=== PATIENT | female | born 1970 | race Caucasian/White ===

== ENCOUNTER → 2021-04-15 16:00 | Outpatient (CLI) | payer OTHER, SELFPAY ==
[2021-04-15 15:22] VITALS: BMI 43.2
[2021-04-15 17:27] LABS: Absolute Lymphocyte Count 1.83 X10^3/uL (0.83-4.51); Absolute Neutrophil Count 6.4 X10^3/uL (2.0-7.7); Basophil# 0.03 X10^3/uL; Basophil% 0.3 % (0-1); Eosinophil# 0.19 X10^3/uL; Eosinophils% 2.1 % (0-5); Hematocrit 43.3 % (37-47); Hemoglobin 13.9 g/dL (12.0-15.0); Lymphocyte # 1.83 X10^3/ul (0.83-4.51); Lymphocyte % 20.3 % (19-41); Mean Corp Hgb Conc 32.1 g/dL (32-36); Mean Corpuscular Hgb 28.4 pg (27.0-32.0); Mean Corpuscular Volume 88.5 fL (81-99); Mean Platelet Vol. 9.1 fl (6.2-12.0); Monocyte# 0.53 X10^3/uL; Monocyte% 5.9 % (0-10); NRBC Flagged by Analyzer 0 % (0-5); Neutrophil # 6.37 X10^3/uL (2.7-7.7); Neutrophil % 70.8 % (47-70); Platelet Count 215 K/mm3 (150-450); RBC Distribution Width CV 13.4 % (11.6-14.6); RBC Distribution Width SD 43.5 fl (35.1-43.9); Red Blood Count 4.89 M/mm3 (4.2-5.4)
[2021-04-15 17:37] LABS: ALB/GLOB Ratio 0.9 RATIO (0.9-2.4); AST(SGOT) 23 U/L (15-37); Alanine Aminotransfer ALT/SGPT 39 U/L (13-56); Albumin, Serum 3.4 g/dL (3.2-5.0); Alkaline Phosphatase 96 U/L (45-117); Anion Gap 6 (5-15); BUN 21 mg/dL (7-18); BUN/Creat Ratio 29.3 RATIO (10-20); Chloride 105 mmol/L (98-107); Cholesterol 169 mg/dL (200); Creatinine, Serum 0.72 mg/dL (0.55-1.02); EST Glomerular Filtration Rate 92 mL/min (>60); Est Glom Filt Rate - Afr Amer 111 mL/min (>60); Globulin 3.9 g/dL (2.2-4.2); Glucose 208 mg/dL (74-106); High Density Lipoprotein 32 mg/dL; Potassium 3.6 mmol/L (3.5-5.1); Protein, Total 7.3 g/dL (6.4-8.2); Sodium Level 141 mmol/L (136-145); Thyroid Stim Hormone (TSH) 2.27 uIU/mL (0.358-3.74); Triglycerides 115 mg/dL; Very Low Density Lipoprotein 23 mg/dL (5-40)
[2021-04-16 10:18] LABS: Hemoglobin A1c 8.3 % (3.8-5.6)
== END ==
PROVIDERS: PCP Family Medicine; Referring Provider Nurse Practitioner Family; Visit Provider Nurse Practitioner Family
DX: I10 Essential (primary) hypertension (principal); R63.5 Abnormal weight gain
CPT/HCPCS: 36415; 80053; 80061; 83036; 84443; 85025

== ENCOUNTER 2021-05-06 14:30 | Outpatient (RCR) | payer OTHER, SELFPAY ==
[2021-04-15 15:22] VITALS: BMI 43.2
== END 2021-05-20 23:59 ==
LOC: DC 14:30
PROVIDERS: PCP Family Medicine; Visit Provider Nurse Practitioner Family
DX: E11.9 Type 2 diabetes mellitus without complications (principal); E66.01 Morbid (severe) obesity due to excess calories
CPT/HCPCS: G0108

== ENCOUNTER 2021-06-18 15:00 | Outpatient (RCR) | payer OTHER, SELFPAY ==
[2021-04-15 15:22] VITALS: BMI 43.2
== END 2021-06-20 23:59 ==
LOC: DC 15:00
PROVIDERS: PCP Family Medicine; Visit Provider Nurse Practitioner Family
DX: E11.9 Type 2 diabetes mellitus without complications (principal); R63.5 Abnormal weight gain
CPT/HCPCS: 97802; 97803

== ENCOUNTER 2021-07-16 14:30 | Outpatient (RCR) | payer OTHER, SELFPAY ==
[2021-06-17 13:33] VITALS: BMI 43.2
== END 2021-07-21 23:59 ==
LOC: DC 14:30
PROVIDERS: PCP Family Medicine; Visit Provider Nurse Practitioner Family
DX: E11.9 Type 2 diabetes mellitus without complications (principal); E66.01 Morbid (severe) obesity due to excess calories
CPT/HCPCS: 97803; G0108

== ENCOUNTER 2021-08-20 14:30 | Outpatient (RCR) | payer OTHER, SELFPAY ==
[2021-07-22 00:36] VITALS: BMI 43.2
== END 2021-08-20 23:59 ==
LOC: DC 14:30
PROVIDERS: PCP Family Medicine; Visit Provider Nurse Practitioner Family
DX: E11.9 Type 2 diabetes mellitus without complications (principal); E66.01 Morbid (severe) obesity due to excess calories
CPT/HCPCS: 97803; G0108

== ENCOUNTER → 2021-10-06 10:13 | Outpatient (CLI) | payer OTHER, SELFPAY ==
[2021-10-06 13:15] LABS: ALB/GLOB Ratio 0.8 RATIO (0.9-2.4); AST(SGOT) 16 U/L (15-37); Alanine Aminotransfer ALT/SGPT 28 U/L (13-56); Albumin, Serum 3.2 g/dL (3.2-5.0); Alkaline Phosphatase 81 U/L (45-117); Anion Gap 4 (5-15); BUN 16 mg/dL (7-18); BUN/Creat Ratio 21.9 RATIO (10-20); Calcium,Total 9.3 mg/dL (8.5-10.1); Chloride 106 mmol/L (98-107); Creatinine, Serum 0.73 mg/dL (0.55-1.02); EST Glomerular Filtration Rate 90 mL/min (>60); Est Glom Filt Rate - Afr Amer 109 mL/min (>60); Globulin 4.2 g/dL (2.2-4.2); Glucose 138 mg/dL (74-106); Potassium 3.7 mmol/L (3.5-5.1); Protein, Total 7.4 g/dL (6.4-8.2); Sodium Level 140 mmol/L (136-145)
[2021-10-06 14:13] LABS: Hemoglobin A1c 5.4 % (3.8-5.6)
== END ==
PROVIDERS: PCP Family Medicine; Referring Provider Nurse Practitioner Family; Visit Provider Nurse Practitioner Family
DX: E11.9 Type 2 diabetes mellitus without complications (principal)
CPT/HCPCS: 36415; 80053; 83036

== ENCOUNTER 2021-10-20 10:28 | Outpatient (RCR) | payer OTHER, SELFPAY ==
[2021-08-21 00:28] VITALS: BMI 43.2
== END 2021-10-20 23:59 ==
LOC: DC 10:28
PROVIDERS: PCP Family Medicine; Visit Provider Nurse Practitioner Family
DX: E11.9 Type 2 diabetes mellitus without complications (principal); E66.01 Morbid (severe) obesity due to excess calories
CPT/HCPCS: 97803

== ENCOUNTER 2021-11-04 10:11 | Outpatient (RCR) | payer OTHER, SELFPAY ==
[2021-10-21 00:08] VITALS: BMI 43.2
== END 2021-11-20 23:59 ==
LOC: DC 10:11
PROVIDERS: PCP Family Medicine; Visit Provider Nurse Practitioner Family
DX: E11.9 Type 2 diabetes mellitus without complications (principal); E66.01 Morbid (severe) obesity due to excess calories
CPT/HCPCS: G0108

== ENCOUNTER 2022-01-21 16:12 | Outpatient (RCR) | payer OTHER, SELFPAY ==
[2021-11-21 00:11] VITALS: BMI 43.2
== END 2022-02-18 23:59 ==
LOC: DC 16:12
PROVIDERS: PCP Family Medicine; Visit Provider Nurse Practitioner Family
DX: E11.9 Type 2 diabetes mellitus without complications (principal); E66.01 Morbid (severe) obesity due to excess calories
CPT/HCPCS: G0109

== ENCOUNTER → 2023-04-29 | Outpatient (CLI) | payer BC, SELFPAY ==
[2023-04-29 11:13] LABS: Mucous, Urine 0 SEEN /hpf (<or=2+)
[2023-04-29 12:32] LABS: Color, Urine Yellow (Yellow); Glucose, Dipstick Normal (Normal); Ketone-Dipstick Negative (Negative); Leukocyte Esterase-Dipstick 25 /ul (Negative); Nitrite-Dipstick Negative (Negative); Occult Blood-Urine 10 /ul (Negative); Protein-Dipstick Negative (Negative); Specific Gravity, Urine 1.025 (1.002-1.030); Urine Bilirubin Dipstick Negative (Negative); Urine Clarity Sl. Cloudy (Clear); Urine Urobilinogen 1 mg/dl (Normal)
[2023-04-29 12:45] LABS: Bacteria 1+ /hpf (None Seen); Red Blood Cells-Urine 0-5 SEEN /hpf (0-5); Squamous Epithelial Cells - UA 0-5 SEEN /hpf (5-10); White Blood Cells 0-5 SEEN /hpf (0-5)
[2023-04-29 12:51] LABS: Absolute Lymphocyte Count 1.63 X10^3/uL (0.83-4.51); Absolute Neutrophil Count 7.3 X10^3/uL (2.0-7.7); Basophil# 0.03 X10^3/uL; Basophil% 0.3 % (0-1); Eosinophil# 0.06 X10^3/uL; Eosinophils% 0.6 % (0-5); Hematocrit 47.9 % (37-47); Hemoglobin 15.4 g/dL (12.0-15.0); Lymphocyte # 1.63 X10^3/ul (0.83-4.51); Mean Corp Hgb Conc 32.2 g/dL (32-36); Mean Corpuscular Hgb 28.7 pg (27.0-32.0); Mean Corpuscular Volume 89.4 fL (81-99); Monocyte# 0.51 X10^3/uL; Monocyte% 5.3 % (0-10); NRBC Flagged by Analyzer 0 % (0-5); Neutrophil # 7.29 X10^3/uL (2.7-7.7); Neutrophil % 76.3 % (47-70); Platelet Count 211 K/mm3 (150-450); RBC Distribution Width CV 13.2 % (11.6-14.6); RBC Distribution Width SD 42.7 fl (35.1-43.9); Red Blood Count 5.36 M/mm3 (4.2-5.4); White Blood Count 9.6 K/mm3 (4.4-11.0)
[2023-04-29 13:36] LABS: Microalbumin,Random Urine 13.7 mg/L (NO RANGE EST.); Microalbumin:Creatinine Ratio 7.1 mg/g CRE (<30 mg/g CRE)
[2023-04-29 13:39] LABS: ALB/GLOB Ratio 0.8 RATIO (0.9-2.4); AST(SGOT) 18 U/L (15-37); Alanine Aminotransfer ALT/SGPT 34 U/L (13-56); Albumin, Serum 3.4 g/dL (3.2-5.0); Alkaline Phosphatase 83 U/L (45-117); Anion Gap 7 (5-15); BUN 18 mg/dL (7-18); BUN/Creat Ratio 22.1 RATIO (10-20); Calcium,Total 9.4 mg/dL (8.5-10.1); Chloride 106 mmol/L (98-107); Creatinine, Serum 0.81 mg/dL (0.55-1.02); EST Glomerular Filtration Rate 79 mL/min (>60); Est Glom Filt Rate - Afr Amer 95 mL/min (>60); Globulin 4.2 g/dL (2.2-4.2); Glucose 183 mg/dL (74-106); Potassium 3.9 mmol/L (3.5-5.1); Protein, Total 7.6 g/dL (6.4-8.2); Sodium Level 139 mmol/L (136-145); Thyroid Stim Hormone (TSH) 1.83 uIU/mL (0.358-3.74)
[2023-04-29 14:01] LABS: Hemoglobin A1c 5.9 % (3.8-5.6)
[2023-04-29 14:16] LABS: HIV - WCH Non-Reactive (Nonreactive); Hepatitis B Surface Antigen Non-Reactive (Nonreactive); Hepatitis C Antibody Non-Reactive (Nonreactive); Syphilis Antibodies Reactive
[2023-04-29 14:41] LABS: Chlamydia Trachomatis by PCR Negative (Negative); Neisserai gonorrhoeae by PCR Negative (Negative); Probe Check PASS; Sample Adequacy Control PASS; Specimen Processing Control PASS
== END | disposition home or self-care (01) ==
PROVIDERS: PCP Family Medicine; Visit Provider Nurse Practitioner Family
DX: I10 Essential (primary) hypertension (principal); E11.9 Type 2 diabetes mellitus without complications; Z72.51 High risk heterosexual behavior
CPT/HCPCS: 36415; 80053; 81001; 82043; 82570; 83036; 84443; 85025; 86703; 86780; 86803; 87086; 87088; 87340; 87491; 87591

== ENCOUNTER → 2024-06-07 | Outpatient (CLI) | payer BC, SELFPAY ==
[2024-06-07 12:35] LABS: Absolute Lymphocyte Count 1.37 X10^3/uL (0.83-4.51); Absolute Neutrophil Count 5.5 X10^3/uL (2.0-7.7); Basophil# 0.02 X10^3/uL; Basophil% 0.3 % (0-1); Eosinophil# 0.09 X10^3/uL; Eosinophils% 1.2 % (0-5); Hematocrit 46.3 % (37-47); Lymphocyte # 1.37 X10^3/ul (0.83-4.51); Lymphocyte % 18.1 % (19-41); Mean Corp Hgb Conc 32.4 g/dL (32-36); Mean Corpuscular Hgb 28.8 pg (27.0-32.0); Monocyte# 0.53 X10^3/uL; NRBC Flagged by Analyzer 0 % (0-5); Neutrophil # 5.54 X10^3/uL (2.7-7.7); Neutrophil % 73.1 % (47-70); Platelet Count 173 K/mm3 (150-450); RBC Distribution Width CV 13.3 % (11.6-14.6); RBC Distribution Width SD 43.1 fl (35.1-43.9); White Blood Count 7.6 K/mm3 (4.4-11.0)
[2024-06-07 13:05] LABS: Vitamin B12 375 pg/mL (211-911); Vitamin D,25 Hydroxy 31.5 ng/mL
[2024-06-07 13:46] LABS: ALB/GLOB Ratio 0.9 RATIO (0.9-2.4); AST(SGOT) 26 U/L (15-37); Alanine Aminotransfer ALT/SGPT 31 U/L (13-56); Albumin, Serum 3.6 g/dL (3.2-5.0); Alkaline Phosphatase 71 U/L (45-117); Anion Gap 5 (5-15); BUN 22 mg/dL (7-18); BUN/Creat Ratio 31.9 RATIO (10-20); Calcium,Total 9.4 mg/dL (8.5-10.1); Chloride 108 mmol/L (98-107); Cholesterol 176 mg/dL (200); Creatinine, Serum 0.69 mg/dL (0.55-1.02); EST Glomerular Filtration Rate 95 mL/min (>60); Est Glom Filt Rate - Afr Amer 115 mL/min (>60); Globulin 4.2 g/dL (2.2-4.2); Glucose 93 mg/dL (74-106); High Density Lipoprotein 51 mg/dL; Potassium 4.1 mmol/L (3.5-5.1); Protein, Total 7.8 g/dL (6.4-8.2); Sodium Level 138 mmol/L (136-145); Thyroid Stim Hormone (TSH) 2.29 uIU/mL (0.358-3.74); Triglycerides 78 mg/dL; Very Low Density Lipoprotein 16 mg/dL (5-40)
[2024-06-07 16:03] LABS: Hemoglobin A1c 5.1 % (3.8-5.6)
== END | disposition home or self-care (01) ==
LOC: VSLAB 09:37
PROVIDERS: PCP Family Medicine; Visit Provider Nurse Practitioner Family
DX: E11.9 Type 2 diabetes mellitus without complications (principal); E56.9 Vitamin deficiency, unspecified
CPT/HCPCS: 36415; 80053; 80061; 82043; 82306; 82607; 83036; 84443; 85025

== ENCOUNTER → 2024-11-26 | Outpatient (CLI) | payer BC, SELFPAY ==
[2024-11-30 16:08] LABS: HPV APTIMA, High Risk Negative (Negative)
[2024-12-03 08:51] LABS: HPV Reflexed? YES, CHARGE PATIENT
== END | disposition home or self-care (01) ==
LOC: LABSPEC 11-27 09:37
PROVIDERS: PCP Nurse Practitioner Family; Visit Provider Nurse Practitioner Family
DX: Z12.4 Encounter for screening for malignant neoplasm of cervix (principal)
CPT/HCPCS: 87624; 88175; G0145

== ENCOUNTER 2024-12-17 05:35 | Day surgery (SDC) | payer BC, SELFPAY ==
--- NOTE | 2024-12-17 06:18 | PRE.ANES_ITS ---
ASA Classification* ASA Classification ASA Classification: 3 Assessment & Plan Anesthesia* Anesthesia Assessment Anesthesia Assessment: Discussed sedation and/or anesthesia options, risks, benefits, and alternatives with patient/parents/legal guardian/POA. Questions invited. The patient/parents/legal guardian/POA seems to understand and agrees to proceed with anesthesia plan. Reviewed the physical assessment, medical history, allergy history and patient home medications list prior to surgery/procedure/anesthetic and documented any changes. Performed airway and anesthesia risk assessments. Anesthesia Type Anesthesia Type: MAC History Source History Obtained from:: Patient and Chart Anesthesia Focused Assessment* Oxygen Delivery Method: Room Air Airway Assessment Mouth opens: >3 cm Mallampati Score: III Teeth Condition: Intact Neck Range of motion (ROM): Full ROM Focused Labs Anesthesia Preop lab: CBC WBC 7.6 K/mm3 (4.4-11.0) 06/07/24 09:38 RBC 5.20 M/mm3 (4.2-5.4) 06/07/24 09:38 Hgb 15.0 g/dL (12.0-15.0) 06/07/24 09:38 Hct 46.3 % (37-47) 06/07/24 09:38 Plt Count 173 K/mm3 (150-450) 06/07/24 09:38 CHEMISTRY Potassium 4.1 mmol/L (3.5-5.1) 06/07/24 09:38 Sodium 138 mmol/L (136-145) 06/07/24 09:38 BUN 22 mg/dL (7-18) H 06/07/24 09:38 Creatinine 0.69 mg/dL (0.55-1.02) 06/07/24 09:38 Glucose 93 mg/dL (74-106) 06/07/24 09:38 POC Glucose 102 mg/dL (74-106) 12/17/24 06:18 TSH 2.29 uIU/mL (0.358-3.74) 06/07/24 09:38 COAG Pre-Assessment Diagnosis/Proposed Procedure Planned Operative Procedure(s): CSCOPE OA Anesthesia History 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 When Was Last Pacemaker Check QUESTION #4 FULL TEXT: You/Your Family Experience fever (hyperthermia) with Anesthesia Last Oral Intake Last Oral intake: Last Oral Intake NPO since Meds taken in AM with sips of water? 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 Female Yes 12/14/24 12:09 HX of Motion Sickness No 12/14/24 12:09 HX of N/V After Surgery Yes 12/14/24 12:09 Non-Smoker Yes 12/14/24 12:09 Duration of Surgery greater No 12/14/24 12:09 than 60 minutes Number of Risk Factors 3 12/14/24 12:09 PONV Score Moderate Risk 12/14/24 12:09 Height & Weight Height & Weight: Anesthesia: Height & Weight Height 5 ft 2 in 10/15/24 09:49 Respiratory Assessment Respiratory Assessment - airconditioning plant operator: Respiratory Tract Infection Hx - 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 Has anyone observed you stop No 12/14/24 12:09 breathing during sleep? STOP Results Negative 12/14/24 12:09 QUESTION #5 FULL TEXT : Do you snore loudly (louder than talking or can be heard through closed doors)? 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 Specify any problems Hx of Preganancy in last 3 No 12/14/24 12:09 Months Nurse Filling Out Transfusion DSCHRIBER 12/14/24 12:09 & Questions: Date: 12/14/24 12/14/24 12:09 Time: 12:12 12/14/24 12:09 Patient unable to answer at this time (ie. 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: /Reproductive Hx- airconditioning plant operator Hx Now No 12/14/24 12:09 Gestational Age (in weeks): EDC: Hx Hx Para Hx Section SAB No 12/14/24 12:09 [facility] Medical History Post-menopausal Diabetes Dietary restriction Gastric reflux Shortness of breath on exertion Leg cramps Non-smoker Cardiology follow-up encounter High risk sexual behavior Chronic eczematoid otitis externa of both ears Acute frontal sinusitis BPPV (benign paroxysmal positional vertigo) Cerumen impaction Type 2 diabetes mellitus Morbid obesity Weight gain, abnormal HTN (hypertension) Hypertension Home Medications ?Medication ?Instructions ?Recorded ?Last Taken ?Type fluticasone propionate 50 2 spray intranasal DAILY #9.9 grams 06/30/21 12/16/24 Rx mcg/actuation nasal spray,suspension (Flonase Allergy Relief) loratadine 10 mg tablet (Claritin) 10 mg PO DAILY 07/27/22 12/16/24 History lisinopril 2.5 mg tablet 2.5 mg PO DAILY #90 tabs 04/29/23 12/16/24 Rx atenolol 50 mg tablet 25 mg PO DAILY 10/15/24 12/17/24 History famotidine 20 mg tablet (Pepcid) 20 mg PO DAILY 10/15/24 12/17/24 History tirzepatide 12.5 mg/0.5 mL 12.5 mg subcut MO 10/15/24 12/03/24 History subcutaneous pen injector (Jennifer) triamcinolone acetonide 0.025 % 1 applic topical DAILY PRN skin 12/14/24 Unknown History topical ointment irritation Allergy/AdvReac Type Severity Reaction Status Date / Time metformin Allergy Mild hives Verified 12/14/24 12:06 Family History Grandfather Asthma Grandfather Skin cancer Grandmother Colon cancer Grandmother Hypertension Surgical History History of cholecystectomy Social History (Updated 10/15/24 @ 09:30 by Lizzeth Morris) household members: other details: current occupational status: employed Smoking Status: Never smoker substance use type: does not use Review of Systems (Anesthesia) ROS Narrative System reviewed and no additional complaints, except as documented. Physical Exam Const alert Orientation / Consciousness: awake Nutritional Appearance: obese
[2024-12-17 06:34] VITALS: BP 132/84; PULSE 78; RESP 16; TEMP 36.3; O2SAT 98; BMI 50.3
[2024-12-17 06:36] LABS: Bedside Glucose 102 mg/dL (74-106)
--- NOTE | 2024-12-17 07:17 | PCM.HP.STD ---
[facility] - General General Date of Admission: 12/17/24 Chief Complaint: Screening colonoscopy [facility] Narrative SORIN SEO, is a 54 F who presents today for screening colonoscopy. She never had a colonoscopy in the past. She has a past medical history of type 2 diabetes, hypertension pain. [facility] Medical History Post-menopausal Diabetes Dietary restriction Gastric reflux Shortness of breath on exertion Leg cramps Non-smoker Cardiology follow-up encounter High risk sexual behavior Chronic eczematoid otitis externa of both ears Acute frontal sinusitis BPPV (benign paroxysmal positional vertigo) Cerumen impaction Type 2 diabetes mellitus Morbid obesity Weight gain, abnormal HTN (hypertension) Hypertension Home Medications ?Medication ?Instructions ?Recorded ?Last Taken ?Type fluticasone propionate 50 2 spray intranasal DAILY #9.9 grams 06/30/21 12/16/24 Rx mcg/actuation nasal spray,suspension (Flonase Allergy Relief) loratadine 10 mg tablet (Claritin) 10 mg PO DAILY 07/27/22 12/16/24 History lisinopril 2.5 mg tablet 2.5 mg PO DAILY #90 tabs 04/29/23 12/16/24 Rx atenolol 50 mg tablet 25 mg PO DAILY 10/15/24 12/17/24 History famotidine 20 mg tablet (Pepcid) 20 mg PO DAILY 10/15/24 12/17/24 History tirzepatide 12.5 mg/0.5 mL 12.5 mg subcut MO 10/15/24 12/03/24 History subcutaneous pen injector (Jennifer) triamcinolone acetonide 0.025 % 1 applic topical DAILY PRN skin 12/14/24 Unknown History topical ointment irritation Allergy/AdvReac Type Severity Reaction Status Date / Time metformin Allergy Mild hives Verified 12/14/24 12:06 Family History Grandfather Asthma Grandfather Skin cancer Grandmother Colon cancer Grandmother Hypertension Surgical History History of cholecystectomy Social History household members: other details: current occupational status: employed Smoking Status: Never smoker substance use type: does not use ROS Constitutional Constitutional: Denies fatigue, fever(s), poor appetite, weight gain or weight loss Gastrointestinal Gastrointestinal: Denies belching, bloating, change in bowel habits, change in stool character, chewing difficulty, coffee ground emesis, constipation, cramping, diarrhea, dyspepsia, dysphagia, early satiety, excessive flatus, fecal incontinence, heartburn, hematemesis, hematochezia, hemorrhoids, loose stools, melena, nausea, odynophagia, rectal bleeding, tenesmus, vomiting or weight changes Vital Signs Vital Signs Vital Signs: 12/17/24 06:23 12/17/24 06:32 12/17/24 06:34 Temperature 97.4 F L Temperature Source Temporal Pulse Rate 78 Respiratory Rate 16 Respiratory Pattern Normal Blood Pressure 132/84 H Blood Pressure Mean 100 Blood Pressure Source Monitor Blood Pressure Position Semi-Fowlers Blood Pressure Location Right Arm Pulse Ox 98 Oxygen Delivery Method Room Air Room Air Weight Weight: 275 lb 9.245 oz Body Mass Index (BMI) 50.3 Physical Exam Const alert, oriented x3, no apparent distress and healthy appearing General Appearance: cooperative GI normal to inspection, nondistended, normoactive bowel sounds, soft to palpation, non-tender and non-distended Percussion: normal to percussion Rectal Exam: deferred Results Lab / Micro Data Labs: Laboratory Results - last 24 hr 12/17/24 06:18: POC Glucose 102 Assessment & Plan Assessment/Plan (1) Encounter for screening for malignant neoplasm of colon: PLAN: She was explained alternatives, risk, benefits including not withstanding bleeding, infection, sepsis, perforation, need for emergent surgery . She will have an ASA of 3.
[2024-12-17 07:43] VITALS: BP 132/84; BP 91/60; PULSE 69; RESP 16; TEMP 36.2; O2SAT 94
[2024-12-17 07:45] VITALS: BP 132/84; BP 97/63; PULSE 80; RESP 16; O2SAT 97
--- NOTE | 2024-12-17 07:48 | PCM.POST.ANE ---
Anesthesia: Postop Eval I Current Vital Signs Temperature: 97.1 F Pulse Rate: 68 Blood Pressure: 91/60 Respiratory Rate: 16 Pulse Ox: 94 Oxygen Delivery Method: Room Air Assessment Airway patent: Yes Spontaneous unlabored respirations: Yes Mental status: Asleep nausea: No Vomiting: No Anesthesia Complication: No Fluid Hydration Crystalloid volume administer (ml): 40 Total IV fluid infused: 40 Progress Note Anesthesia document: Postop Eval 1 completed: Yes
[2024-12-17 07:49] VITALS: BP 91/60; PULSE 68; RESP 16; TEMP 36.2; O2SAT 94
--- NOTE | 2024-12-17 07:49 | OP.CCLET_ITS ---
12/17/2024 Karel Sauer [facility], Security Door Installer-c Re : Colonoscopy procedure for Cassidy Claudio Dear Camacho This procedure was performed on Tuesday, December 17, 2024. My impressions and recommendations are as follows: Impressions : - Diverticulosis in the recto-sigmoid colon and in the sigmoid colon. - The examination was otherwise normal on direct and retroflexion views. - No specimens collected. Recommendations : - Discharge patient to home. - Resume previous diet. - Continue present medications. - Repeat colonoscopy in 5 years for screening purposes. My findings are described in the full procedure note, which is enclosed. If I can be of further assistance, please feel free to contact me at . Sincerely, Owen Oglesby, 12/17/2024 7:48:49 AM This report has been signed electronically.
--- NOTE | 2024-12-17 07:49 | OP.COLON_ITS ---
Patient Name: Cassidy Claudio Procedure Date: 12/17/2024 7:22 AM Date of : 1970 Age: 54 Procedure: Colonoscopy Indications: Screening for colorectal malignant neoplasm Providers: Owen Oglesby DO Medicines: Monitored Anesthesia Care Patient Profile: This is a 54 year old female. Refer to note in patient chart for documentation of history and physical. Last Colonoscopy: none. The patient's first colonoscopy is today. Complications: No immediate complications. Procedure: Pre-Anesthesia Assessment: - Prior to the procedure, a History and Physical was performed, and patient medications and allergies were reviewed. The patient is competent. The risks and benefits of the procedure and the sedation options and risks were discussed with the patient. All questions were answered and informed consent was obtained. Patient identification and proposed procedure were verified by the physician in the pre-procedure area. Mental Status Examination: alert and oriented. Airway Examination: normal oropharyngeal airway and neck mobility. Respiratory Examination: clear to auscultation. CV Examination: normal. Prophylactic Antibiotics: The patient does not require prophylactic antibiotics. Prior Anticoagulants: The patient has taken no anticoagulant or antiplatelet agents except for NSAID medication. ASA Grade Assessment: II - A patient with mild systemic disease. After reviewing the risks and benefits, the patient was deemed in satisfactory condition to undergo the procedure. The anesthesia plan was to use monitored anesthesia care (MAC). Immediately prior to administration of medications, the patient was re-assessed for adequacy to receive sedatives. The heart rate, respiratory rate, oxygen saturations, blood pressure, adequacy of pulmonary ventilation, and response to care were monitored throughout the procedure. The physical status of the patient was re-assessed after the procedure. After I obtained informed consent, the scope was passed under direct vision. Throughout the procedure, the patient's blood pressure, pulse, and oxygen saturations were monitored continuously. The pediatric colonoscope was introduced through the anus and advanced to the cecum, identified by appendiceal orifice and ileocecal valve. The colonoscopy was performed without difficulty. The patient tolerated the procedure well. The quality of the bowel preparation was adequate. The ileocecal valve, appendiceal orifice, and rectum were photographed. Scope In: 7:29:26 AM Scope Withdrawal Time 0 hours 7 minutes 1 second Scope Out: 7:38:31 AM Total Procedure Duration Time 0 hours 9 minutes 5 seconds Findings: The perianal and digital rectal examinations were normal. A few small-mouthed diverticula were found in the recto-sigmoid colon and sigmoid colon. The exam was otherwise without abnormality on direct and retroflexion views. Impression: - Diverticulosis in the recto-sigmoid colon and in the sigmoid colon. - The examination was otherwise normal on direct and retroflexion views. - No specimens collected. Recommendation: - Discharge patient to home. - Resume previous diet. - Continue present medications. - Repeat colonoscopy in 5 years for screening purposes. Procedure Code(s): --- Professional --- G0121, Colorectal cancer screening; colonoscopy on individual not meeting criteria for high risk CPT copyright 2021 [employer]. All rights reserved. The codes documented in this report are preliminary and upon supervisor money room review may be revised to meet current compliance requirements. Owen Oglesby DO 12/17/2024 7:48:49 AM This report has been signed electronically. Number of Addenda: 0 Note Initiated On: 12/17/2024 7:22 AM
[2024-12-17 07:55] VITALS: BP 106/73; BP 132/84; PULSE 68; RESP 16; TEMP 36.4; O2SAT 96
--- NOTE | 2024-12-17 08:08 | PCM.POSTANE2 ---
Anesthesia Postop Eval I Sum Postop Eval Completion status Anesthesia document: Postop Eval 1 completed: Yes Anesthesia Postop Eval I Summary Anesthesia Postop Eval I Summary: Anesthesia Postop Eval I: Assessment Summary Airway patent Yes 12/17/24 07:49 [email or web address] Spontaneous unlabored Yes 12/17/24 07:49 [email or web address] respirations Mental status Asleep 12/17/24 07:49 [email or web address] nausea No 12/17/24 07:49 [email or web address] Vomiting No 12/17/24 07:49 [email or web address] Anesthesia Postop Eval I: Fluid Summary Crystalloid volume administer 40 12/17/24 07:49 [email or web address] (ml) Colloids volume administered ( ml) Blood Product volume administered (ml) Total IV fluid infused 40 12/17/24 07:49 [email or web address] Anesthesia Postop Eval I: Summary Notes Anesthesia Complication No 12/17/24 07:49 [email or web address] Anesthesia Complication Comment: Post-operative progress note Anesthesia: Postop Eval II Evaluation Mental status: Awake Pain Level: 0 nausea: No Vomiting: No Complications Anesthesia Complication: No
[2024-12-17 08:09] VITALS: BP 132/84
== END 2024-12-17 08:30 | disposition home or self-care (01) ==
LOC: EN 05:38 → AC 05:40
PROVIDERS: PCP Nurse Practitioner Family; Referring Provider Nurse Practitioner Family; Visit Provider Internal Medicine Gastroenterology
PROC: 0DJD8ZZ Inspection of Lower Intestinal Tract, Via Natural or Artificial Opening Endoscopic (ICD-10-PCS; CPT 45378; principal; 2024-12-17 06:55)
DX: Z12.11 Encounter for screening for malignant neoplasm of colon (principal); E11.9 Type 2 diabetes mellitus without complications; I10 Essential (primary) hypertension; K57.30 Diverticulosis of large intestine without perforation or abscess without bleeding; K21.9 Gastro-esophageal reflux disease without esophagitis; Z79.899 Other long term (current) drug therapy; Z90.49 Acquired absence of other specified parts of digestive tract; Z79.85 Long-term (current) use of injectable non-insulin antidiabetic drugs; E66.9 Obesity, unspecified
CPT/HCPCS: 45378; 82962; A4216; J2405